=== PATIENT | female | born 1970 | race Two or more races ===

== ENCOUNTER 2018-08-23 13:06 | Outpatient (CLI) | payer OTHER ==
[~2018-08-23 13:06] MED LIST: IMODIUM A-D2 MG PO; INTESTINEX1 CAP PO; PRILOSEC20 MG PO; SKELAXIN800 MG PO
== END 2018-08-23 13:26 | disposition home or self-care (01) ==
LOC: RAD 501 13:06
DX: M41.80 Other forms of scoliosis, site unspecified (principal)

== ENCOUNTER 2020-10-17 19:36 | Emergency (ER) | payer OTHER ==
[~2020-10-17] VITALS: Ht 167.6 cm; Wt 74.8 kg
== END 2020-10-17 23:13 | disposition home or self-care (01) ==
LOC: ER 19:36
DX: R10.2 Pelvic and perineal pain (principal); D25.9 Leiomyoma of uterus, unspecified

== ENCOUNTER 2022-09-10 19:43 | Emergency (ER) | payer OTHER ==
[~2022-09-10] VITALS: Ht 167.6 cm; Wt 72.6 kg
== END 2022-09-10 22:28 | disposition home or self-care (01) ==
LOC: ER 19:43
DX: R10.32 Left lower quadrant pain (principal); Z88.6 Allergy status to analgesic agent